=== PATIENT | female | born 1965 | race Caucasian/White ===

== ENCOUNTER → 2022-04-24 15:00 | Outpatient (CLI) | payer OTHER, SELFPAY ==
--- NOTE | 2022-04-24 15:01 | DI.RAD.S_ITS ---
PROCEDURE: XR ANKLE LT MIN 3V INDICATIONS: Left lateral ankle pain TECHNIQUE: 3 views of the ankle were acquired. COMPARISON: None. FINDINGS: Bones: No fractures or dislocations. Ankle mortise is normally aligned. No suspicious bony lesions. Soft tissues: Positive tibiotalar joint effusion. Lateral ankle swelling. Achilles tendon appears normal. IMPRESSION: Lateral ankle swelling. Ankle joint effusion. No evidence acute bony abnormality of the left ankle. If clinical suspicion and/or symptoms persist, further assessment with repeat plain films, or advanced imaging (e.g., CT, MRI, or bone scan) may be helpful for further assessment. Dictated by: Joon Ocampo M.D. on 04/24/2022 at 16:20 Approved by: Joon Ocampo M.D. on 04/24/2022 at 16:21
== END ==
PROVIDERS: Referring Provider Registered Nurse; Visit Provider Registered Nurse
DX: M25.572 Pain in left ankle and joints of left foot (principal); M25.472 Effusion, left ankle
CPT/HCPCS: 73610